=== PATIENT | female | born 1960 | race Caucasian/White ===

== ENCOUNTER → 2016-12-14 | Outpatient (CLI) | payer OTHER ==
--- NOTE | 2016-12-15 09:42 | ECHOF ---
Referral Reason:Abn EKG MEASUREMENTS -------- HEIGHT: 170.2 cm WEIGHT: 83.0 kg BP: RVIDd: 2.6 cm (< 3.3) IVSd: 1.2 cm (0.6 - 1.1) LVIDd: 3.7 cm (3.9 - 5.3) LVPWd: 0.9 cm (0.6 - 1.1) IVSs: 1.5 cm LVIDs: 2.6 cm LVPWs: 1.3 cm LA Diam: 2.7 cm (2.7 - 3.8) Ao Diam: 2.9 cm (2.0 - 3.7) AV Cusp: 1.7 cm (1.5 - 2.6) LA Diam: 3.6 cm (2.7 - 3.8) MV EXCURSION: 18.048 mm (> 18.000) MV EF SLOPE: 92 mm/s (70 - 150) EPSS: 1.7 cm MV E Osorio: 0.51 m/s MV DecT: 234 ms MV A Osorio: 0.72 m/s MV E/A Ratio: 0.71 RAP: 5.00 mmHg RVSP: 22.41 mmHg FINDINGS -------- Sinus rhythm. This was a technically good study. There is mild concentric left ventricular hypertrophy. Overall left ventricular systolic function is normal with, an EF between 55 - 60 %. The right ventricle is normal in size. The left atrial size is normal. The right atrial size is normal. The aortic valve is trileaflet, and appears structurally normal. No aortic stenosis or regurgitation. Mild mitral regurgitation is present. Mild tricuspid regurgitation present. There is no evidence of pulmonary hypertension. The right ventricular systolic pressure, as measured by Doppler, is 22.41mmHg. Trace/mild (physiologic) pulmonic regurgitation. The aortic root size is normal. There is no pericardial effusion. CONCLUSIONS -------- 1. There is mild concentric left ventricular hypertrophy. 2. Overall left ventricular systolic function is normal with, an EF between 55 - 60 %. 3. Mild mitral regurgitation is present. 4. There is no evidence of pulmonary hypertension. 5. The right ventricular systolic pressure, as measured by Doppler, is 22.41mmHg. 6. Trace/mild (physiologic) pulmonic regurgitation. 7. The aortic root size is normal. 8. There is no pericardial effusion. [employer] ARCHITECT: Cassandra Grove RDCS
== END | disposition home or self-care (01) ==
LOC: RADECHMAIN 14:46
PROVIDERS: ATTEND Family Medicine
DX: I34.0 Nonrheumatic mitral (valve) insufficiency (principal); I51.7 Cardiomegaly; I37.1 Nonrheumatic pulmonary valve insufficiency
CPT/HCPCS: 93306

== ENCOUNTER → 2017-12-18 | Outpatient (CLI) | payer OTHER ==
--- NOTE | 2017-12-18 11:54 | CTL ---
EXAMINATION TYPE: CT Low Dose Lung DATE OF EXAM ORDERED: 12/18/2017 HISTORY: Long-term tobacco use. Lung cancer screening CT DLP: 95.[address] CTDI: 2.7 mGy Automated exposure control for dose reduction was used. SCREENING VISIT: Initial study COMPARISON: None TECHNIQUE: Low dose computed tomography scan was performed through the chest at 1 mm thick sections a nd reconstructed images in the coronal plane at [address] DIAGNOSTIC QUALITY: Satisfactory FINDINGS: LUNG NODULES: None. Of significance Incidental 3 x 1.5 mm elongated nodule axial image 147 right midlung anterior medially. LUNGS: COPD: Severity: Moderate Fibrosis: Severity: Moderate right greater than left biapical pleural/parenchymal Lymph nodes: None Other findings: None BILATERAL PLEURAL SPACE: Effusion: None Calcification: None Thickening: None Pneumothorax: None HEART: Heart Size: Normal Coronary calcification: None Pericardial effusion: None OTHER FINDINGS: Upper abdomen: Suspect mild diffuse fat replaced atrophy of pancreas distal body and tail Bony thorax: Mild to moderate multilevel anterior and lateral spurring in the thoracic spine is prese nt. Supraclavicular region: No significant abnormality seen Other: No additional significant finding identified. IMPRESSION: Moderate emphysematous change without suspicious nodules. FOLLOW UP CT CHEST RECOMMENDATION: Annual low-dose lung screening CT CT LUNG RAD: Lung-Rad 2 Benign Appearance or Behavior
== END | disposition home or self-care (01) ==
LOC: RADCTMAIN 09:30
PROVIDERS: ATTEND Family Medicine
DX: J43.9 Emphysema, unspecified (principal); Z87.891 Personal history of nicotine dependence

== ENCOUNTER → 2018-08-20 | Outpatient (CLI) | payer OTHER ==
--- NOTE | 2018-08-20 15:43 | MR ---
EXAMINATION TYPE: MR cervical spine wo con DATE OF EXAM: 08/20/2018 COMPARISON: Plain film spine 07/29/2014 HISTORY: Cervicalgia TECHNIQUE: Multiplanar, multisequence images of the cervical spine were acquired. C2-C3: No evidence for degenerative disc disease. No disc bulge/herniation or protrusion. No Canal stenosis. Foramina are patent bilaterally. C3-C4: Posterior broad-based disc bulge causes minimal anterior mass effect on the thecal sac, latera l extension endplate disc complex results in foraminal encroachment right greater than left. C4-C5: No evidence for degenerative disc disease. No disc bulge/herniation or protrusion. No Canal stenosis. Foramina are patent bilaterally. C5-C6: Posterior extension endplate disc complex causes anterior mass effect on the thecal sac, only mild canal stenosis. Lateral extension endplate disc complex results in bilateral foraminal encroachm ent. C6-C7: Posterior extension of endplate disc complex results in mild anterior mass effect on the theca l sac. No significant central stenosis. Lateral extension endplate disc complex results in foraminal encroachment left greater than right. C7-T1: No evidence for degenerative disc disease. No disc bulge/herniation or protrusion. No Canal stenosis. Foramina are patent bilaterally. Cervical segments are intact. There is normal alignment. Cervical spinal cord is of normal signal. Craniovertebral junction relationships are within normal limits. There is loss of disc height at C5 -6 and C6-7 and to lesser extent C3-4, loss of disc signal compatible disc desiccation at the interve rtebral levels. There is multilevel spondylosis with endplate discogenic marrow signal change. Minima l inflammatory change noted in the sphenoid sinus. IMPRESSION: Degenerative disc disease, foraminal encroachment as described. No significant canal stenosis.
== END ==
LOC: RADMRIMAIN 11:17
PROVIDERS: ATTEND Psychiatry & Neurology Neurology
DX: M50.30 Other cervical disc degeneration, unspecified cervical region (principal); Z88.2 Allergy status to sulfonamides
CPT/HCPCS: 72141

== ENCOUNTER → 2023-09-11 | Outpatient (CLI) | payer OTHER ==
--- NOTE | 2023-09-11 18:03 | CTL ---
EXAMINATION TYPE: CT Low Dose Lung DATE OF EXAM: 09/11/2023 4:02 PM CLINICAL INDICATION:Female, 63 years old with history of Z12.2 SCREENING FOR CA F17.210 NICOTINE DEPE NDENCE; Former 2 ppd x 40 years. Current .5 ppd , history of tobacco use. COMPARISON: 12/18/2017. TECHNIQUE: Multiple axial non-contrast scans were obtained from approximately the lung apices through the upper abdomen. Coronal and sagittal reformatted images were obtained. Low dose technique was uti lized. CT DLP: 61 mGycm, Automated exposure control for dose reduction was used. CT Contrast: Contrast used: None Oral contrast used: None FINDINGS: ======== Lack of intravenous contrast and low dose technique limits the evaluation of the vascular and soft ti ssue structures. LUNGS: No evidence of pulmonary fibrosis. No evidence of focal consolidation, pneumothorax or pleural effusion. Mild centrilobular and paraseptal emphysema changes. Apical scarring. Nodules: RUL: None. RML: Stable 3 mm series 6 image 29 RLL: None. JUANPABLO: None. LLL: None. AIRWAY: Patent and unremarkable. HEART: Size within normal limits. MEDIASTINUM: No gross evidence of adenopathy. VASCULATURE: No aortic aneurysm. MUSCULOSKELETAL: No acute osseous abnormalities SOFT TISSUES/LYMPH NODES: Unremarkable. LOWER NECK: No significant findings. UPPER ABDOMEN: No significant findings. IMPRESSION: 1. No new or enlarging pulmonary nodules 2. Mild centrilobular emphysema changes. CT LUNG RAD AND CT CHEST RECOMMENDATION: Lung-Rad 2 Benign Appearance or Behavior: Continue annual sc reening with LDCT in 12 months. S Modifier (other clinically significant findings): None Recommend smoking cessation (if current smoker), or continuation of smoking cessation (if prior smoke r). Annual screening for lung cancer with low-dose computed tomography is recommended in adults ages 55 to 77 years who have a 30 pack-year smoking history and currently smoke or have quit within the pa st 15 years. Screening should be discontinued once a person has not smoked for 15 years or develops a health problem that substantially limits life expectancy or the ability or willingness to have curat alireza lung surgery. Lung rads 2021 [email or web address]
== END | disposition home or self-care (01) ==
LOC: RADCTMAIN 15:26
PROVIDERS: ATTEND Family Medicine
DX: Z12.2 Encounter for screening for malignant neoplasm of respiratory organs (principal); F17.210 Nicotine dependence, cigarettes, uncomplicated; J43.2 Centrilobular emphysema
CPT/HCPCS: 71271

== ENCOUNTER → 2024-09-17 | Outpatient (CLI) | payer OTHER ==
--- NOTE | 2024-09-17 15:46 | CTL ---
EXAMINATION TYPE: CT Low Dose Lung DATE OF EXAM ORDERED: 09/17/2024 COMPARISON: 09/11/2023 CLINICAL INDICATION: Female, 64 years old with history of Z12.2, F17.210; H, Current smoker, .5 ppd x 50 years., Lung cancer screening, History of Smoking/tobacco use. TECHNIQUE: Low dose computed tomography scan was performed through the chest at 1 mm thick sections a nd reconstructed images in multiple planes at 1 mm and [address] DLP: 105.[address] CTDI: 2.9 mGy Automated exposure control for dose reduction was used. CT DIAGNOSTIC QUALITY: Satisfactory EXAMINATION TYPE: CT Low Dose Lung DATE OF EXAM ORDERED: 09/17/2024 CLINICAL INDICATION: Female, 64 years old with history of Z12.2, F17.210, history of tobacco use, Alex g cancer screening CT DLP: 105.[address] CTDI: 2.9 mGy Automated exposure control for dose reduction was used. Comparison: None TECHNIQUE: Low dose computed tomography scan was performed through the chest at 1 mm thick sections a nd reconstructed images in multiple planes at 1 mm and [address] DIAGNOSTIC QUALITY: Satisfactory FINDINGS: There are moderate emphysematous changes. There is marked stable pleural parenchymal scarring in the lung apices. There are 2 stable sub-5 mm nodules in the right lung. There is a new 5.2 mm nodule in the left upper lobe. The lungs are clear and there is no abnormal airspace consolidation or interstitial density. There is no mediastinal, hilar or axillary adenopathy. There is no pleural effusion, pleural thickening or pneumothorax. No focal osseous lesions are seen. Limited scans the upper abdomen reveals no gross abnormality IMPRESSION: 1. Lung rads Category 3, likely benign. New 5.2 mm nodule left upper lobe. Follow-up CT thorax in [facility] is recommended to confirm stability.. 2. No acute cardiopulmonary disease. 3. Moderate emphysematous changes. [facility], , 09/17/2024 3:43 PM
== END | disposition home or self-care (01) ==
LOC: RADCTMAIN 14:51
PROVIDERS: ATTEND Family Medicine
DX: Z12.2 Encounter for screening for malignant neoplasm of respiratory organs (principal); J43.9 Emphysema, unspecified; F17.210 Nicotine dependence, cigarettes, uncomplicated; R91.1 Solitary pulmonary nodule
CPT/HCPCS: 71271